=== PATIENT | male | born 1995 | race Caucasian/White ===

== ENCOUNTER 2023-07-25 22:42 | Emergency (ER) | payer MEDICAID ==
[~2023-07-25] VITALS: Ht 182.9 cm; Wt 77.3 kg
[2023-07-26] MEDS ORDERED: SULF1TAB49 PO (00:24)
[2023-07-26] MEDS ORDERED: CEPH-585 PO (00:24)
[2023-07-26] MEDS: cephalexin 500mg capsule PO ONE (00:40)
[2023-07-26] MEDS: TETanus/Pertussis (Acell)/Diphther VAC/PF (Tdap-Adult) 0.5ml syringe IMVAC ONE (00:40)
[2023-07-26] MEDS: sulfamethoxazole/trimethoprim DS (800/160mg) tablet PO ONE (00:40)
[2023-07-26 00:47] VITALS: BP 122/74; PULSE 84; RESP 17; TEMP 99.5; O2SAT 98
== END 2023-07-26 00:48 | disposition home or self-care (01) ==
LOC: ER 22:43
DX: L02.611 Cutaneous abscess of right foot (principal); L03.115 Cellulitis of right lower limb; Z88.8 Allergy status to other drugs, medicaments and biological substances; Z79.2 Long term (current) use of antibiotics
CPT/HCPCS: 90471; 90715; 99283